=== PATIENT | female | born 1950 ===

== ENCOUNTER → 2024-04-30 | Outpatient (CLI) | payer MEDICARE | LOC: LAB SHORT 15:45 → LAB 15:45 | DX: L08.9 Local infection of the skin and subcutaneous tissue, unspecified (principal); D36.10 Benign neoplasm of peripheral nerves and autonomic nervous system, unspecified; D48.5 Neoplasm of uncertain behavior of skin | CPT/HCPCS: 87070; 87077; 87205 ==